=== PATIENT | male | born 1965 | race Caucasian/White ===

== ENCOUNTER 2017-02-06 14:54 | Emergency (ER) | payer SELFPAY ==
[~2017-02-06] VITALS: Ht 165.1 cm; Wt 82.0 kg
[~2017-02-06 14:54] MED LIST: BENA10TA3; FLUO10TA3; HYDR25TA
[2017-02-06] MEDS ORDERED: TETANUS, DIPHTHERIA, PERTUSSIS VAC/PF 0.5ML (>7YR OLD) IM ONE (17:45)
[2017-02-06] MEDS ORDERED: LIDOCAINE HCL 1% 20ML VIAL (Pyxis) INJ MC ONE (17:45)
[2017-02-06] MEDS ORDERED: BACITRACIN ZINC OINT UDPKT TOP ONE (17:45)
[2017-02-06 20:45] VITALS: BP 158/93
== END 2017-02-06 22:26 | disposition home or self-care (01) ==
LOC: ER 16:27
DX: S61.411A Laceration without foreign body of right hand, initial encounter (principal); F17.200 Nicotine dependence, unspecified, uncomplicated; Z98.890 Other specified postprocedural states; Z90.49 Acquired absence of other specified parts of digestive tract; W25.XXXA Contact with sharp glass, initial encounter; Y93.89 Activity, other specified; Y92.89 Other specified places as the place of occurrence of the external cause; Y99.8 Other external cause status
CPT/HCPCS: 12042; 73130; 90471; 90715; 99284; J3490; X7700; Z7610